=== PATIENT | female | born 1985 | race Hispanic/Latino ===

== ENCOUNTER 2016-08-09 09:35 | Emergency (ER) | payer OTHER ==
[~2016-08-09 09:35] MED LIST: DOCU-41 PO; HYDR-4003 PO; IBUP-1827 PO; PREN-99 PO
[2016-08-09 09:48] VITALS: BP 145/81; PULSE 96; RESP 15; O2SAT 98
--- NOTE | 2016-08-09 09:59 | ED.REPORT ---
HPI-Extremity Problem Lower Date of Service Aug 09, 2016 ED Provider: Sancho Marie MD This is 31 year old female presenting to the emergency department due to left lower extremity pain that worsened today. Reports left sided low back pain with radiation down the left lower extremity to the toes. Associated with left leg numbness and tingling. Denies bowel or bladder incontinence, R symptoms in R leg , dysuria, fever, chills, or lower extremity swelling. Nursing Notes Stated Complaint: LT LEG PAIN Chief Complaint: Extremity Trauma Nursing Notes Reviewed: Yes Allergies: Coded Allergies: No Known Allergies (Unverified Allergy, Unknown, 05/30/14) Scheduled Pnv95/Ferrous Fumarate/FA ( Multivitamins Tablet) 1 Each Tablet 1 EACH PO DAILY Scheduled PRN Docusate Sodium (Colace) 100 Mg Capsule 100 MG PO BID PRN PRN For Constipation Hydrocodone-Acetaminophen 5-325 mg (Hydrocodone-Acetaminophen 5-325 mg) 1 Each Tablet 1 TABLET PO Q4H PRN PRN For Pain Hydrocodone-Acetaminophen 5-325 mg (Hydrocodone-Acetaminophen 5-325 mg) 1 Each Tablet 1 TABLET PO Q4H PRN PRN For Pain Ibuprofen (Ibuprofen) 600 Mg Tablet 600 MG PO QID PRN PRN For Pain Ibuprofen (Ibuprofen) 800 Mg Tablet 800 MG PO TID PRN PRN For Pain General Time Seen by MD: 09:53 Chief Complaint Other Hx Obtained From: Patient Arrived By: Walk-in Onset Occurred: 1 - 4 hours ago Symptom Duration: Since onset Severity: Current: Moderate Pertinent Negative: Pt denies other symptoms Recent Healthcare: No recent doctor visit, No recent hospitalization Similar Sx Previous: No Past Medical History Past Medical History denies Past Surgical History denies Smoking History Never Smoker Social History Alcohol Use: Denies alcohol use Drug Use: Denies drug use Occupation lives with a friend, no work or school Ambulatory Status Independent Review of Systems Constitutional: Denies: Chills, Fever Musculoskeletal: Reports: Back pain, Extremity pain, Denies: Extremity swelling Neurologic: Reports: Numbness, Denies: Bladder dysfunction, Bowel dysfunction Complete sys rev & neg: except as marked. Physical Exam Initial Vital Signs Vital Signs (First) Date Time Temp Pulse Resp B/P Pulse Ox O2 Delivery O2 Flow Rate FiO2 08/09/16 09:48 36.8 96 15 145/81 98 Room Air Initial VS: Reviewed General/Constitutional: Well-developed, Well-nourished Head / Eyes: Atraumatic, Normocephalic, PERRL ENT: Mucous membranes moist, Conjunctiva normal, No scleral icterus Neck: Supple, Non-tender, Full range of motion Respiratory: Breath sounds normal, Clear to auscultation, No respiratory distress Cardiovascular: Regular rate & rhythm, Heart sounds normal, Intact distal pulses Abdomen / GI: Soft, Non-tender, No guarding, No rebound, No distention Upper Extremities: Vascular intact, Neuro intact, No swelling, No tenderness Skin: Warm, Dry, No cyanosis Neurologic: Alert, Oriented, Nonfocal Psychiatric: Mood/affect normal, Behavior normal, Normal thought content Lower Extremity / Pelvis / MS: Neurologic intact, Vascular intact Straight leg test positive on L 30 degrees Ankle / Foot: Atraumatic, Inspection NL, Full range of motion, No swelling, No erythema, Non-tender, No deformity, Neurologic intact, Vascular intact, No edema Interpretation & Diagnostics Lab Results Interpretation Test 08/09/16 10:37 Hold Urine Received (Received) Re-Eval/Medical Decision Med Decision/Clinical Course 31-year-old female with low back pain radiating down the back of her left leg times one day. No red flag symptoms. No risk factors DVT. No leg swelling. Urine negative for infection. Positive straight leg raise. Pain resolved with Toradol. We will treat with NSAIDs and follow-up primary doctor. Return precautions given. Re-Evaluation/Progress : Time of Eval: 10:50 Patient Status: Moderate relief Re-Evaluation/Progress Note: Plan for d/c, all questions addressed. Counseled Regarding: Diagnosis, Lab results, Need for follow-up, When/why to return to ED Discharge & Departure Impression: Primary Impression: Sciatica Laterality: left Qualified Code: M54.32 - Sciatica, left side Disposition: Home Discharge Condition All VS Reviewed: Yes Condition: Stable Patient Instructions: Sciatica (ED) Additional Instructions: Thank you for seeking care at the emergency department today. Your evaluation was consistent with sciatic pain. Please call your primary care provider today to schedule an appointment for further evaluation. Take ibuprofen for pain control. You may also take prescribed narcotic medication only when needed for pain relief. Return to the emergency department for any new or worsening symptoms including inability to control bowel or bladder, inability to walk, fever, chills, or vomiting. Referrals: [facility] (PCP) Scribe Attestation Portions of this note were transcribed by Ness Aleman. I, Dr. Marie personally performed the history, physical exam and medical decision-making; I reviewed and confirmed the accuracy of the information in the transcribed note. Signed by: aspen Blankenship. 08/09/2016, 18:00. Sancho Marie MD Aug 09, 2016 09:59 NESS ALEMAN Aug 09, 2016 10:01
[2016-08-09] MEDS ORDERED: Ketorolac 30 mg/mL 2 mL Inj IM ONE (10:15)
[2016-08-09] MEDS ORDERED: HYDR-4003 PO (10:50)
[2016-08-09] MEDS ORDERED: IBUP800T28 PO (10:50)
[2016-08-09 11:20] VITALS: BP 112/63; PULSE 71; RESP 16; O2SAT 98
== END 2016-08-09 11:22 | disposition home or self-care (01) ==
LOC: SED 09:35
DX: M54.32 Sciatica, left side (principal)
CPT/HCPCS: 81025; 96372; 99284; J1885